=== PATIENT | female | born 2000 | race Caucasian/White ===

== ENCOUNTER 2021-08-06 23:49 | Emergency (ER) | payer BC ==
--- NOTE | 2021-08-07 00:02 | NUR ---
NO ANSWER IN LOBBY
--- NOTE | 2021-08-07 00:17 | NUR ---
NO ANSWER IN LOBBY
--- NOTE | 2021-08-07 01:07 | NUR ---
Patient left without being seen.
== END 2021-08-07 01:07 | disposition left against medical advice (07) ==
LOC: SED 23:49
DX: S05.90XA Unspecified injury of unspecified eye and orbit, initial encounter (principal); F17.200 Nicotine dependence, unspecified, uncomplicated; Z53.21 Procedure and treatment not carried out due to patient leaving prior to being seen by health care provider